=== PATIENT | male | born 1965 | race Caucasian/White ===

== ENCOUNTER 2025-01-02 17:52 | Emergency (ER) | payer BC, OTHER ==
[2025-01-02] MEDS ORDERED: Lidocaine 1% 30 ML SDV ONE (18:08)
== END 2025-01-02 19:27 | disposition home or self-care (01) ==
LOC: DL.ED 17:52
DX: S91.312A Laceration without foreign body, left foot, initial encounter (principal); W20.8XXA Other cause of strike by thrown, projected or falling object, initial encounter
CPT/HCPCS: 12002; 99282